=== PATIENT | female | born 1980 | race Two or more races ===

== ENCOUNTER 2016-05-01 10:57 | Emergency (ER) | payer BC ==
[2016-05-01 11:36] VITALS: BP 110/75; PULSE 103; RESP 18; TEMP 99.3; O2SAT 95
--- NOTE | 2016-05-01 12:08 | UCPHY ---
H & P Time Seen by Provider: 05/01/16 11:11 Patient Type: Established HPI/ROS: CHIEF COMPLAINT: flu-like symptoms HISTORY OF PRESENT ILLNESS: 35-year-old immunocompetent female with up-to-date seasonal flu vaccination complaining of flu-like symptoms for the past 24 hours including sinus congestion, myalgias, bilateral otalgia, nonproductive cough. No nuchal rigidity. No chest pain. No back pain. No abdominal pain. REVIEW OF SYSTEMS: A ten point review of systems was performed and is negative with the exception of the items mentioned in the HPI PAST MEDICAL & SURGICAL HISTORY: No pertinent medical or surgical history SOCIAL HISTORY:nonsmoker PHYSICAL EXAM (Prior to examination, patient consented to physical exam, hands were washed and my usual and customary physical exam procedures followed) 1) GENERAL: Well-developed, well-nourished, alert and oriented. Appears to be in no acute distress. 2) HEAD: Normocephalic, atraumatic 3) HEENT: Pupils equal, round, reactive to light bilaterally. Sclera anicteric. Nasopharynx, oropharynx, clear, no lesions. Ears bilaterally with clear external auditory canal , no otorrhea, no crusting at the EAC meatus, no fetid odor, bilateral intact tympanic membrane with no erythema no evidence of otitis media or externa. Bilateral mastoid nontender non boggy. 4) NECK: Full range of motion, no meningeal signs. 5) LUNGS: Clear auscultation bilaterally, no wheezes, no rhonchi, no retractions. 6) HEART: Regular rate and rhythm, no murmur, no heave, no gallop. 7) ABDOMEN: No guarding, no rebound, no focal tenderness, negative McBurney's, negative Arauz's, negative Rovsing's, negative peritoneal sign, 8) MUSCULOSKELETAL: Moving all extremities, no focal areas of tenderness, no obvious trauma. No peripheral edema or discoloration. 9) BACK: No CVA tenderness, no midline vertebral tenderness, no fluctuance, no step-off, no obvious trauma, no visual or palpable abnormality. 10) SKIN: No rash, no petechiae. 11) Psychiatric: Patient is oriented X 3, there is no agitation. DIFFERENTIAL DIAGNOSIS: in no particular include but not limited to meningitis, strep pharyngitis, influenza Smoking Status: Never smoked Constitutional: Initial Vital Signs Temperature (C) 37.4 C 05/01/16 11:34 Heart Rate 103 H 05/01/16 11:34 Respiratory Rate 18 05/01/16 11:34 Blood Pressure 110/75 05/01/16 11:34 O2 Sat (%) 95 05/01/16 11:34 O2 Delivery Mode Room Air Allergies/Adverse Reactions: No Known Allergies Allergy (Verified 05/01/16 11:33) Home Medications: Medication Instructions Recorded Oseltamivir Phosphate [Tamiflu] 75 mg PO BIDMEAL 5 Days 05/01/16 MDM/Departure - MDM ED Course/Re-evaluation: This patient does not appear septic. She specifically inquired about any signs of right otitis externa which she does not have any signs of otitis externa or otitis media. - Depart Disposition: Home, Routine, Self-Care Clinical Impression: Influenza A Condition: Good Instructions: Influenza (ED) Additional Instructions: Return to the urgent care or go to the emergency department immediately for change in breathing habits, change in voice, change in swallowing habits, change in mental status, or any other symptoms that concern you. Stand Alone Forms: Work Excuse Prescriptions: Oseltamivir Phosphate [Tamiflu] 75 mg PO BIDMEAL 5 Days Referrals: Gisselle Perez MD [Medical Doctor] - 2-3 days, call for appt. - PQRS PQRS Measurement: n/a
== END 2016-05-01 12:25 | disposition home or self-care (01) ==
LOC: CED 10:57
DX: J09.X2 Influenza due to identified novel influenza A virus with other respiratory manifestations (principal); H92.03 Otalgia, bilateral
CPT/HCPCS: 87400-PO; 87880-PO; 99214-PO; G0463-PO